=== PATIENT | female | born 1975 | race African-American/Black ===

== ENCOUNTER → 2017-06-06 | Outpatient (CLI) | payer BC ==
[~2017-06-06] MED LIST: BCP
--- NOTE | ~2017-06-06 | CR63 ---
[facility] A Service of [facility] & [facility] RADIOLOGY TEXT RESULTS PATIENT: STACIE DIAZ LOCATION: [facility] : 73 UNIT #: [id number] AGE: [address]: JENA MENDEZ MD SEX: F ORDER DR: [id number] [facility] [address] [place], [place] [address] [id number] O MR#: [id number] Acc #: [id number] NAME: STACIE DIAZ : 1975 SEX: F STUDY DATE/TIME: 06/06/2017 15:07 UNIT: [facility] ROOM: STUDY DESCRIPTION: CR Chest 2 View Ordering Physician: Vasiliy Mendez M.D. 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 COMPARISON None. FINDINGS PA and lateral chest views show normal cardiac size and configuration. Hilar structures and mediastinal contours are preserved. Bilateral lungs are expanded and clear. IMPRESSION Negative chest. Dictated by... Gilmer Chung M.D. THIS IS AN ELECTRONICALLY VERIFIED REPORT Gilmer Chung M.D. at 06/07/2017 8:04 AM LINCOLN/kaia TD: 06/06/2017 23:06 JOB #: [id number] MEDICAL IMAGING REPORT Page 1 of 1 COPY
== END | disposition home or self-care (01) ==
LOC: CLAB 14:39
DX: H20.9 Unspecified iridocyclitis (principal)
CPT/HCPCS: 71020; 82164; 85549; 86592; 86780